=== PATIENT | female | born 2000 | race Caucasian/White ===

== ENCOUNTER 2018-05-13 14:25 | Emergency (ER) | payer OTHER ==
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
[2018-05-13] MEDS ORDERED: ACETAMINOPHEN 500 MG TABLET ONE (15:40)
[2018-05-13] MEDS ORDERED: ACETAMINOPHEN 500 MG TABLET PO ONE (15:45)
[2018-05-13 16:24] VITALS: BP 112/71
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
== END 2018-05-13 16:22 | disposition home or self-care (01) ==
LOC: ED 14:25
DX: Z04.1 Encounter for examination and observation following transport accident (principal); R51 Headache; V48.5XXA Car driver injured in noncollision transport accident in traffic accident, initial encounter; Y93.89 Activity, other specified; Y92.411 Interstate highway as the place of occurrence of the external cause
CPT/HCPCS: 70450; 99283; 99284